=== PATIENT | female | born 1990 | race African-American/Black ===

== ENCOUNTER 2016-04-04 17:00 | Inpatient (IN) | payer OTHER ==
[~2016-04-04] VITALS: Ht 175.3 cm; Wt 122.7 kg
[~2016-04-04 17:00] MED LIST: ADVAIR 100/501 DISK IH; ALBUTEROL SULF8.5 GM IH; Advair 250/50 Diskus IH; BENZONATATE100 MG; DELTASONE20 M1 PO; DUONEB 2.5-0.5 M3 ML IH; DuoNeb IH; FLEXERIL10 MG PO; IBUPROFEN800 MG PO; KEFLEX500 MG PO; Levaquin PO; MEDROL DOSEPAK4 MG PO; MOTRIN600 MG PO; MOTRIN800 MG PO; NASONEX17 GM BOTH NARES; NORCO 7.5/321 TABLET PO; PREDNISONE20 MG; PREDNISONE50 MG PO; PRENATAL TABLE1 EAC3 PO; PROAIR HFA8.5 GM; PROVENTIL,2.5 MG/3 M IH; PULMICORT90 MICROGR IH; Proventil,Ventolin H IH; Pulmicort 180 microg IH; Robitussin, Organidi PO; SINGULAIR10 MG; SINGULAIR10 MG PO; Singulair PO; Theo-Dur,Theocron PO; VENTOLIN HFA18 GM; VENTOLIN HFA18 GM IH; VIBRAMYCIN100 MG PO; VIGAMOX 0.60 DROP/3 BOTH EYES; predniSONE PO
[2016-04-04 17:28] VITALS: BP 121/60
[2016-04-04] MEDS ORDERED: EXPECTA PRENAT1 EACH PO (17:53)
[2016-04-04] MEDS ORDERED: PROVENTIL,2.5 MG/0.5 IH (17:54)
[2016-04-04 17:59] LABS: EOSINOPHIL (%) 5.1 % (0-5); EOSINOPHIL COUNT 0.5 K/uL (0-0.3); HEMATOCRIT 34.1 % (36.0-46.0); IMMATURE GRANULOCYTE (%) 0.3 % (0.0-0.7); LYMPHOCYTE COUNT 1.9 K/uL (1.0-2.8); MCH 25.6 PG (29.0-34.0); MCHC 32.6 G/DL (30.0-36.0); MCV 78.6 FL (83-99); MEAN PLAT.VOLUME 10.4 uM^3 (9.5-12.4); MONOCYTE (%) 5.9 % (3-12); MONOCYTE COUNT 0.6 K/uL (0-0.8); NEUTROPHIL (%) 68.6 % (45-76); NEUTROPHIL COUNT 6.5 K/uL (1.8-6.4); PLATELET COUNT 233 K/uL (156-360); RBC DIS.WIDTH-CV 15.5 % (11.8-14.6); RBC DIS.WIDTH-SD 44.6 % (39-53); RED BLOOD COUNT 4.34 M/uL (3.80-5.20); WHITE BLOOD COUNT 9.5 K/uL (4.1-10.2)
[2016-04-04 18:54] VITALS: BP 124/59
[2016-04-04 19:54] VITALS: BP 112/60
[2016-04-04 20:54] VITALS: BP 117/58
[2016-04-04 23:26] VITALS: BP 127/57
[2016-04-05] VITALS (30 sets, daily range): BP systolic 99–142; BP diastolic 52–65
[2016-04-06 07:44] VITALS: BP 105/57
[2016-04-06 08:05] LABS: EOSINOPHIL (%) 3.7 % (0-5); EOSINOPHIL COUNT 0.4 K/uL (0-0.3); IMMATURE GRANULOCYTE (%) 0.3 % (0.0-0.7); LYMPHOCYTE COUNT 2.1 K/uL (1.0-2.8); MCH 25.9 PG (29.0-34.0); MCHC 32.5 G/DL (30.0-36.0); MCV 79.6 FL (83-99); MEAN PLAT.VOLUME 10.9 uM^3 (9.5-12.4); MONOCYTE COUNT 0.7 K/uL (0-0.8); NEUTROPHIL (%) 66.9 % (45-76); NEUTROPHIL COUNT 6.3 K/uL (1.8-6.4); PLATELET COUNT 212 K/uL (156-360); RBC DIS.WIDTH-CV 15.4 % (11.8-14.6); RBC DIS.WIDTH-SD 45.2 % (39-53); RED BLOOD COUNT 4.02 M/uL (3.80-5.20); WHITE BLOOD COUNT 9.4 K/uL (4.1-10.2)
[2016-04-06 15:15] VITALS: BP 108/61
[2016-04-06 23:38] VITALS: BP 112/58
[2016-04-07 07:30] VITALS: BP 124/58
[2016-04-07] MEDS ORDERED: Tylenol Extra Streng PO (12:37)
== END 2016-04-07 15:50 | disposition home or self-care (01) | DRG 775 ==
LOC: LDRP-OP → 2WEST 17:01 → LDRP-OP 05-05 09:06
PROVIDERS: Advanced Practice Midwife
DX: O70.0 First degree perineal laceration during delivery (principal); O41.03X0 Oligohydramnios, third trimester, not applicable or unspecified; O69.81X0 Labor and delivery complicated by cord around neck, without compression, not applicable or unspecified; O99.824 Streptococcus B carrier state complicating childbirth; O99.214 Obesity complicating childbirth; E66.9 Obesity, unspecified; O99.52 Diseases of the respiratory system complicating childbirth; J45.909 Unspecified asthma, uncomplicated; Z68.36 Body mass index [BMI] 36.0-36.9, adult; Z3A.40 40 weeks gestation of pregnancy; Z37.0 Single live birth
CPT/HCPCS: 85025; C1726; C1755; G0378; J2540; J3010; J7120

== ENCOUNTER 2016-09-30 03:04 | Emergency (ER) | payer OTHER ==
[~2016-09-30] VITALS: Ht 175.3 cm; Wt 130.0 kg
[~2016-09-30 03:04] MED LIST changes: +EXPECTA PRENAT1 EACH PO; +PROVENTIL,2.5 MG/0.5 IH; +Tylenol Extra Streng PO
[2016-09-30] MEDS ORDERED: PROAIR HFA8.5 GM IH (03:42)
[2016-09-30] MEDS ORDERED: NAPROSYN500 MG PO (03:42)
[2016-09-30 04:10] VITALS: BP 148/84
== END 2016-09-30 04:11 | disposition home or self-care (01) ==
LOC: EME 03:04
DX: S83.92XA Sprain of unspecified site of left knee, initial encounter (principal); J45.901 Unspecified asthma with (acute) exacerbation
CPT/HCPCS: 94640; 99281; 99284

== ENCOUNTER 2017-08-13 03:29 | Emergency (ER) | payer OTHER ==
[~2017-08-13] VITALS: Ht 175.3 cm; Wt 128.5 kg
[~2017-08-13 03:29] MED LIST changes: +NAPROSYN500 MG PO; +PROAIR HFA8.5 GM IH
[2017-08-13 04:40] VITALS: BP 146/81
== END 2017-08-13 04:41 | disposition home or self-care (01) ==
LOC: EME 03:29
PROC: 0H90XZZ Drainage of Scalp Skin, External Approach (ICD-10-PCS; principal; 2017-08-13)
DX: L02.811 Cutaneous abscess of head [any part, except face] (principal); J45.909 Unspecified asthma, uncomplicated; Z87.440 Personal history of urinary (tract) infections; Z86.19 Personal history of other infectious and parasitic diseases; Z91.018 Allergy to other foods
CPT/HCPCS: 99281; 99283

== ENCOUNTER 2017-08-23 20:41 | Emergency (ER) | payer OTHER ==
[~2017-08-23] VITALS: Ht 175.3 cm; Wt 128.6 kg
[2017-08-23 21:08] LABS: HEMATOCRIT 35.8 % (36.0-46.0); HEMOGLOBIN 11.6 G/DL (11.9-15.5); MCH 26.5 PG (29.0-34.0); MCHC 32.4 G/DL (30.0-36.0); MCV 81.7 FL (83-99); PLATELET COUNT 346 K/uL (156-360); RBC DIS.WIDTH-CV 15.6 % (11.8-14.6); RBC DIS.WIDTH-SD 46.5 % (39-53); RED BLOOD COUNT 4.38 M/uL (3.80-5.20); WHITE BLOOD COUNT 11.1 K/uL (4.1-10.2)
[2017-08-23 21:16] LABS: CHLORIDE 105 mEq/L (99-109); POTASSIUM 4.2 mEq/L (3.7-5.4); SODIUM 139 mEq/L (136-147)
[2017-08-23 21:17] LABS: GLUCOSE 88 mg/dL (70-99)
[2017-08-23 21:21] LABS: CREATININE 0.9 mg/dL (0.6-1.3); GFR ESTIMATE (CALCULATED) > 59 mL/min/
[2017-08-23 21:22] LABS: UREA NITROGEN (BUN) 9 mg/dL (9-23)
[2017-08-23 21:29] LABS: QUANTITATIVE HCG 185.3 MIU/ML
[2017-08-23 23:03] VITALS: BP 143/99
== END 2017-08-23 23:08 | disposition home or self-care (01) ==
LOC: EME 20:41
PROVIDERS: Physician Assistant
DX: O20.9 Hemorrhage in early pregnancy, unspecified (principal); O26.891 Other specified pregnancy related conditions, first trimester; R03.0 Elevated blood-pressure reading, without diagnosis of hypertension; O99.511 Diseases of the respiratory system complicating pregnancy, first trimester; J45.909 Unspecified asthma, uncomplicated; O99.341 Other mental disorders complicating pregnancy, first trimester; F31.9 Bipolar disorder, unspecified; Z3A.01 Less than 8 weeks gestation of pregnancy; Z87.440 Personal history of urinary (tract) infections
CPT/HCPCS: 76801; 80048; 84702; 85027; 99281; 99283